=== PATIENT | male | born 1960 | race Caucasian/White ===

== ENCOUNTER 2018-10-11 22:00 | Inpatient (IN) | payer OTHER ==
[2018-10-11] MEDS ORDERED: Aspirin 81 mg CHEW TAB* 81 MG TAB.CHEW ONE (22:14)
[2018-10-11] MEDS ORDERED: Heparin for STEMI(*) 5,000 UNITS/ML 1 ML VIAL IV ONE (22:15)
[2018-10-11] MEDS ORDERED: Ticagrelor* 90 MG TAB PO ONE ×2 (22:15→22:17)
[2018-10-11] MEDS ORDERED: Aspirin 81 mg CHEW TAB* 81 MG TAB.CHEW PO ONE (22:17)
--- NOTE | 2018-10-11 22:21 | ED ---
HPI Chest Pain - HPI Summary HPI Summary: This pt is a 57 Y/O M presenting to [facility] with a CC of mid-sternal chest pain that started at 1800 and is rated a 5/10 in severity. The pt states that he described the pain as heart burn. He stated that it started after eating dinner and he felt his fingers go numb. He stated that he had SOB, nausea, diaphoresis , and dizziness during the episode. He denied any fever, chills, and headaches. He stated no known aggravating or alleviating factors. He denies any personal PMHx but stated that cardiac history is present on his mother and fathers side. He stated that he recently quit smoking and occasionally uses drugs and drinks alcohol. - History of Current Complaint Chief Complaint: EDChestPainROMI Time Seen by Provider: 10/11/18 22:06 Hx Obtained From: Patient Onset/Duration: Started Hours Ago - 4, Still Present Time of Onset: 18:00 Timing: Constant Initial Severity: Moderate Current Severity: Moderate Pain Intensity: 5 Pain Scale Used: 0-10 Numeric Chest Pain Location: Mid Sternal Chest Pain Radiates: No Character: Burning Aggravating Factor(s): Nothing Alleviating Factor(s): Nothing Associated Signs and Symptoms: Positive: Chest Pain - mid-sternal, Numbness - fingers, Dizziness, Shortness of Breath, Diaphoresis, Nausea. Negative: Headaches, Fever, Chills - Allergy/Home Medications Allergies/Adverse Reactions: Allergies Allergy/AdvReac Type Severity Reaction Status Date / Time No Known Allergies Allergy Verified 10/11/18 22:13 Home Medications: Home Medications NK [No Home Medications Reported] 10/11/18 [History Confirmed 10/11/18] PMH/Surg Hx/FS Hx/Imm Hx Previously Healthy: Yes Endocrine/Hematology History: Denies: Hx Diabetes Cardiovascular History: Denies: Hx Hypertension Infectious Disease History: No Infectious Disease History: Denies: Traveled Outside the [place] in Last 30 Days - Family History Known Family History: Positive: Cardiac Disease - Social History Alcohol Use: Occasionally Hx Substance Use: Yes Hx Tobacco Use: No Smoking Status (MU): Former Smoker Length of Time of Smoking/Using Tobacco: quit on 2017 Review of Systems Positive: Skin Diaphoresis. Negative: Fever, Chills Positive: Chest Pain - mid-sternal Positive: Shortness Of Breath Positive: Nausea Neurological: Other - dizziness Positive: Numbness - fingers. Negative: Headache All Other Systems Reviewed And Are Negative: Yes Physical Exam - Summary Physical Exam Summary: Appearance: Well appearing, no pain distress Skin: warm, dry, reflects adequate perfusion Head/face: normal Eyes: EOMI, MURTAZA ENT: normal Neck: supple, non-tender Respiratory: CTA, breath sounds present Cardiovascular: RRR, pulses symmetrical Abdomen: non-tender, soft Musculoskeletal: normal, strength/ROM intact Neuro: normal, sensory motor intact, A&Ox3 Triage Information Reviewed: Yes Vital Signs On Initial Exam: Initial Vitals Temp Pulse Resp BP Pulse Ox 97.6 F 62 16 152/81 97 10/11/18 22:05 10/11/18 22:05 10/11/18 22:05 10/11/18 22:05 10/11/18 22:05 Vital Signs Reviewed: Yes Diagnostics - Vital Signs Vital Signs Temp Pulse Resp BP Pulse Ox 10/11/18 22:05 97.6 F 62 16 152/81 97 - Laboratory Result Diagrams: 10/11/18 22:13 10/11/18 22:13 Lab Statement: Any lab studies that have been ordered have been reviewed, and results considered in the medical decision making process. - Radiology CXR Radiology Interpretation Completed By: ED Physician Summary of Radiographic Findings: No acute process. Pending offical review. - EKG 2202 Cardiac Rate: NL - 60 BPM EKG Rhythm: Sinus Rhythm Summary of EKG Findings: Pt has a sinus rhythm at 60 BPM and an Inferior VA. This EKG shows a [place] [address]/11/18. Chest Pain Course/Dx - Course Course Of Treatment: This pt is a 57 Y/O M presenting to [facility] with a CC of mid- sternal chest pain that started at 1800 and is rated a 5/10 in severity. The pt states that he described the pain as heart burn. His PE found no acute findings. Pt has a sinus rhythm at 60 BPM and an Inferior VA. This EKG shows a STEMI. STEMI was called at 2211. Pt was given Brillinta 180 mg, Heparin for stroke at 5,000 units IV and ASA 324 mg at 2215. His CXR no acute processes. His lab results were reviewed. Dr. Ruiz, dehydrating press operator, saw the pt at 2245 and admitted the pt to [facility] for further treatments. Pt was admitted with a Dx of STEMI. - Chest Pain Differential Diagnosis/HQI/PQRI: Acute VA, ACS, Chest Wall, Lower Respiratory Infection, Pulmonary Embolism - Diagnoses Provider Diagnoses: STEMI (ST elevation myocardial infarction) During the Visit The Following Alert/Code Occurred: STEMI - Provider Notifications Discussed Care Of Patient With: Az Ruiz Time Discussed With Above Provider: 22:45 Instructed by Provider To: Admit As Inpatient - Critical Care Time Critical Care Time: 30-74 min Discharge - Sign-Out/Discharge Documenting (check all that apply): Patient Departure - admitted All imaging exams completed and their final reports reviewed: Yes Patient Received Moderate/Deep Sedation with Procedure: No - Discharge Plan Condition: Stable Disposition: ADMITTED TO [facility] - Billing Disposition and Condition Condition: STABLE Disposition: Admitted to [facility] - Attestation Statements Document Initiated by Lukaszibe: Yes Documenting Scribe: Jamaal Dooley Provider For Whom Scribe is Documenting (Include Credential): Varun De La Paz MD Scribe Attestation: Jamaal Pfeiffer scribed for Varun De La Paz MD on 10/12/18 at 0022. Scribe Documentation Reviewed: Yes Provider Attestation: The documentation as recorded by the Jamaal jimenes accurately reflects the service I personally performed and the decisions made by Varun farmer MD Status of Scribe Document: Viewed
[2018-10-11 22:24] LABS: ABS Basophils 0.1 10^3/ul (0-0.2); ABS Eosinophils 0.2 10^3/ul (0-0.6); ABS Lymphocytes 2.1 10^3/ul (1.0-4.8); ABS Monocytes 0.7 10^3/ul (0-0.8); ABS Neutrophils 3.6 10^3/ul (1.5-7.7); Eosinophil % 2.3 %; Hematocrit 44 % (42-52); Hemoglobin 15.5 g/dL (14.0-18.0); Lymphocyte % 31.1 %; Mean Corpuscular HGB Conc 36 g/dL (31-36); Mean Corpuscular Hemoglobin 31 pg (27-31); Mean Corpuscular Volume 88 fL (80-94); Mean Platelet Volume 9.6 fL (7.4-10.4); Platelet Count 206 10^3/uL (150-450); Red Blood Count 4.94 10^6 /uL (4.18-5.48); Red Cell Distribution Width 13 % (10-15); White Blood Count 6.7 10^3/uL (3.5-10.8)
[2018-10-11 22:35] LABS: Activated Partial Thrombo Time 34.6 seconds (26.0-38.0); INR 0.98 (0.82-1.09)
[2018-10-11 22:39] LABS: Albumin 4.3 g/dL (3.2-5.2); Albumin/Globulin Ratio 1.7 (1-3); BUN/Creatinine Ratio 34.9 (8-20); Calcium 9.2 mg/dL (8.6-10.3); EGFR African American 115.5 (>60); EGFR Non-African American 95.5 (>60); Globulin 2.6 g/dL (2-4); Potassium 3.7 mmol/L (3.5-5.0); Total Bilirubin 0.3 mg/dL (0.2-1.0); Total Protein 6.9 g/dL (6.4-8.9)
[2018-10-11 22:41] LABS: Troponin I 0.02 ng/mL (<0.04)
[2018-10-11] MEDS ORDERED: Midazolam* 1 MG/ML 5 ML VIAL (5 MG) ONE (22:41)
[2018-10-11] MEDS ORDERED: fentaNYL* 50 MCG/ML 2 ML VIAL (100 MCG VIAL) ONE (22:41)
[2018-10-11] MEDS ORDERED: VERAPAMIL 2.5 MG/ML 2 ML VIAL ** 5 mg/2 ml ONE (22:41)
[2018-10-11] MEDS ORDERED: Heparin(*) 1000 UNIT/ML 10 ML VIAL CATH LAB IV ONE (22:41)
[2018-10-11] MEDS ORDERED: Lidocaine 1% INJ* 10 MG/ML 30 ML SDV ONE (22:42)
[2018-10-11] MEDS ORDERED: nitroGLYCERIN DRIP* 25,000 MCG/250 ML BTL ONE (22:42)
[2018-10-11] MEDS ORDERED: Heparin 2 UNITS/ML IVPREMIX* 3,000 UNIT/1,500 ML BAG IV ONE (22:42)
[2018-10-11] MEDS ORDERED: Heparin VIAL(*) 5000 UNITS/ML VIAL (FIVE THOUSAND) IV SCH (23:00)
[2018-10-11] MEDS ORDERED: Bivalirudin(*) 250 MG VIAL ONE (23:08)
[2018-10-11] MEDS ORDERED: Iohexol 350 (CONTRAST) 200 ML MDV IV ONE (23:22)
[2018-10-11] MEDS ORDERED: Nitroglycerin TAB 0.4 MG* 0.4 MG TAB SL PRN (23:42)
[2018-10-11] MEDS ORDERED: Docusate CAP* 100 MG PO PRN (23:42)
[2018-10-11] MEDS ORDERED: Ondansetron INJ* 2 MG/ML VIAL IV PRN (23:42)
[2018-10-11] MEDS ORDERED: Acetaminophen TAB* 325 MG PO PRN (23:42)
[2018-10-11] MEDS ORDERED: Zolpidem TAB* 5 MG PO PRN (23:42)
[2018-10-11] MEDS ORDERED: NS 0.9% 1000 ML** 1,000 ML IV SCH (23:45)
[2018-10-11] MEDS ORDERED: Atorvastatin* 80 MG TAB PO ONE (23:49)
[2018-10-12] MEDS ORDERED: Atorvastatin* 80 MG TAB ONE (00:04)
[2018-10-12] MEDS ORDERED: Captopril TAB* 12.5 MG PO SCH (02:00)
[2018-10-12 05:05] LABS: ABS Eosinophils 0.1 10^3/ul (0-0.6); ABS Lymphocytes 1.7 10^3/ul (1.0-4.8); ABS Monocytes 0.7 10^3/ul (0-0.8); ABS Neutrophils 4.1 10^3/ul (1.5-7.7); Eosinophil % 1.8 %; Hematocrit 42 % (42-52); Hemoglobin 14.5 g/dL (14.0-18.0); Lymphocyte % 25.7 %; Mean Corpuscular HGB Conc 35 g/dL (31-36); Mean Corpuscular Hemoglobin 31 pg (27-31); Mean Corpuscular Volume 88 fL (80-94); Mean Platelet Volume 9.5 fL (7.4-10.4); Nucleated Red Blood Cells % 0.1; Platelet Count 200 10^3/uL (150-450); Red Blood Count 4.69 10^6 /uL (4.18-5.48); Red Cell Distribution Width 13 % (10-15); White Blood Count 6.7 10^3/uL (3.5-10.8)
[2018-10-12 05:25] LABS: ALT 39 U/L (7-52); Albumin 3.9 g/dL (3.2-5.2); Albumin/Globulin Ratio 1.5 (1-3); Alkaline Phosphatase 42 U/L (34-104); BUN/Creatinine Ratio 31.9 (8-20); Blood Urea Nitrogen 22 mg/dL (6-24); CO2 Carbon Dioxide 24 mmol/L (22-32); Calcium 9.1 mg/dL (8.6-10.3); Chloride 105 mmol/L (101-111); Cholesterol 227 mg/dL; Creatine Kinase 316 U/L (10-223); EGFR African American 142.5 (>60); EGFR Non-African American 117.8 (>60); Globulin 2.6 g/dL (2-4); Glucose 161 mg/dL (70-100); HDL Cholesterol 43.7 mg/dL; LDL Cholesterol 113 mg/dL; Sodium 135 mmol/L (135-145); Total Protein 6.5 g/dL (6.4-8.9); Triglycerides 353 mg/dL
[2018-10-12 05:41] LABS: Troponin I 2.53 ng/mL (<0.04)
[2018-10-12 06:03] LABS: AST 33 U/L (13-39); Anion Gap 6 mmol/L (2-11); Potassium 3.9 mmol/L (3.5-5.0)
[2018-10-12] MEDS: Lisinopril TAB* 5 MG PO SCH (09:24)
[2018-10-12] MEDS: Aspirin 81 mg CHEW TAB* 81 MG TAB.CHEW PO SCH (09:25)
[2018-10-12] MEDS: Ticagrelor* 90 MG TAB PO SCH ×2 (09:25→20:07)
--- NOTE | 2018-10-12 10:20 | HP ---
ADMISSION HISTORY AND PHYSICAL: DATE OF ADMISSION: 10/11/18 CHIEF COMPLAINT: The patient presents with chest discomfort and arm and neck discomfort with EKG demonstrating acute ST-segment elevation inferior wall myocardial infarction. HISTORY OF PRESENT ILLNESS: The patient is a 58-year-old gentleman with no prior known cardiac history. Specifically, he denies any history of myocardial infarction, congestive heart failure, or significant heart rhythm disturbance. The patient works at [employer] doing significant exertional activity. He was moving furniture tonight and around 06:30 to 7:00 when he had moved furniture, he developed the onset of a chest pressure feeling significant in his chest with radiation to his arm and also to his neck. Of note, he started having this symptom on and off throughout the evening. He had some shortness of breath and some sweating and some nauseousness. He eventually thought that he should seek medical attention and presented to [facility] Emergency Room where an EKG demonstrated ST-segment elevation in the inferior leads with reciprocal changes in the early precordial leads in [address] elevation in V4 through 6. The emergency room doctor sent me the EKG and I immediately instructed him to call a STEMI alert. In the emergency room, he was still having mild symptoms albeit they were better. He received heparin 4000 units, Brilinta 180 mg and full-dose aspirin. The risks and benefits of cardiac catheterization were explained and he wished to proceed. Cardiac risk factors included no known history of hypertension, diabetes, or high cholesterol. He does have a significant family history with father who had a massive heart attack in his 50s and . He has a significant smoking history of at least greater than 20 years of smoking and stopped some 2 years ago. PAST MEDICAL HISTORY: No significant medical problems. MEDICATIONS: He currently does not take medications. SOCIAL HISTORY: He currently does not smoke, but was a former smoker of greater than 20 pack years. He occasionally drinks alcohol and has partaken of other substance uses. REVIEW OF SYSTEMS: Pertinent toward proceeding to the cardiovascular laboratory - the patient denies any history of hematochezia, hematemesis, or hematuria. He denies any history of TIA or stroke, any history of kidney disease and he denies any dye allergy. PHYSICAL EXAMINATION GENERAL: When I see him reveals a pleasant gentleman in very mild distress at best, appearing stable. VITAL SIGNS: Blood pressure in the emergency room was anywhere from 138 to 152/ 81 to 92, pulse in the 60s to 70s, respirations 16, O2 saturation greater than 95%. NECK: Supple. No increased JVP. LUNGS: Fairly clear with minimal wheeze present. HEART: Revealed regular rate and rhythm. No significant systolic or diastolic murmur. ABDOMEN: Soft and nontender without organomegaly. EXTREMITIES: Without clubbing, cyanosis, elier pitting edema. Peripheral pulses intact. Femoral pulses present without bruits. MUSCULOSKELETAL: The patient moves all extremities appropriately. NEUROLOGIC: The patient is alert, oriented with normal mentation. PSYCHOLOGICAL: The patient with normal affect, appropriate for his situation. DIAGNOSTIC STUDIES/LAB DATA: Laboratory results - pending at the time of emergency room assessment. EKG in the emergency room dated 10/11/18, time 2203, showed sinus bradycardia, heart rate 60, AR interval 0.14, QRS 0.10, QT 0.38, axis is +89 degrees. There is J-point elevation with ST-segment elevation in II, III and aVF and V4 through [address]-segment depression in aVL, V1 and V2. OVERALL ASSESSMENT: Sukh presents now with clear-cut stuttering symptoms over the past 3-1/2 hours suggestive of an acute ST-segment elevation inferior wall myocardial infarction. He appears to have improvement of his symptoms and this may represent reperfusion. He has not documented any reperfusion arrhythmias at this time. He has received aspirin, Brilinta, and heparin therapy. We will make further adjustments pending results of the cardiac catheterization. The risks and benefits were explained to him and with his present and he understands and wishes to proceed. Further management will be made pending results. High-dose statin therapy obviously will be instituted in addition to risk factor modification of his lifestyle. ADDENDUM: Laboratory results that came back during cardiac catheterization demonstrated hemoglobin/hematocrit of 15.5 and 44 with a platelet count of 206, 000, sodium 137, potassium 3.7, chloride 104, bicarb 21, BUN and creatinine of 29 and 0.8. Initial troponin 0.02, SGOT 22, SGPT 40, lactic acid 1.5. [id number]/[facility] #: [id number] [facility]
[2018-10-12] MEDS: Enoxaparin(*) 40 MG/0.4 ML SYR SUBCUT SCH (11:00)
--- NOTE | 2018-10-12 11:26 | CATH ---
CARDIAC CATHETERIZATION INTERVENTIONAL REPORT: DATE OF PROCEDURE: 10/11/18 INDICATION FOR PROCEDURE: The patient with acute ST segment elevation inferior wall myocardial infarction. CONSENT: The patient was interviewed and examined in the emergency room where the risks and benefits were explained. He understood them and wished to proceed. APPROACH UTILIZED: The right radial artery was assessed by ultrasound and found to be acceptable for an approach and as such this was the technique utilized. PRE-CARDIAC CATHETERIZATION LABORATORY RESULTS: Pending at the time of starting the case. During the case, the laboratory results came back with hemoglobin and hematocrit of 15.5 and 44 with a platelet count of 206,000. BUN and creatinine of 29 and 0.83. Sodium 137, potassium 3.7, chloride 104, bicarb 21, troponin 0.02. EQUIPMENT UTILIZED: 1. Right radial artery sheath - a 6 [place]ian Glidesheath Slender. 2. Diagnostic guidewire was a 260 length Andres guidewire. 3. Diagnostic coronary catheter was a TIG4 5 [place]ian catheter. 4. The interventional guide catheter was a 6 [place] Heartrail III IR 1.0 guide catheter. 5. The interventional wire utilized was 190 cm length All Star wire. 6. The stent utilized was a 3.0 x 23 mm long Xience Rose stent. 7. The post stent deployment balloon catheter was a 3.5 x 12 mm long NC Emerge balloon. 8. The left heart catheterization catheter was 5 [place]ian TIG short radial catheter. 9. The closure device utilized was a Vasc Band regular size by [employer]. MEDICATIONS GIVEN: The patient received heparin 4000 units in the emergency room in addition to aspirin 324 and Brilinta 180 mg orally. In the skill labor, the patient received a radial artery cocktail including 300 mcg of nitroglycerin and 3 mg of verapamil. He received Versed for sedation. ACT was checked and found to be subtherapeutic. He received an Angiomax bolus and Angiomax drip was started. DESCRIPTION OF PROCEDURE: The patient was brought to the cardiovascular laboratory where a formal time-out was performed. He was prepped and draped in sterile fashion, and under ultrasound guidance, the right radial artery was cannulated and sheath was placed. Coronary arteriography was performed. The decision was made to intervene into the right coronary artery mid lesion. The patient's ACT was checked, found to be subtherapeutic. Angiomax bolus and Angiomax drip was started. Guiding views were obtained and the guidewire was advanced down the right coronary artery and placed in the distal portion. Primary stenting was performed utilizing the 3.0 x 23 mm long Xience Rose drug -eluting stent with post deployment balloon inflations made with a 3.5 x 12 mm long NC Emerge balloon dilated to as high as mid 20 atmospheres to obtain 3.6 to 3.7 mm. Following this, the artery was assessed for result. Left heart catheterization was then performed utilizing the big Performa catheter. Left ventriculography was performed utilizing a total 28 cc of Omnipaque dye at a rate of 14 cc/sec. Following this, the catheter and sheath were removed and hemostasis was obtained with the Vasc Band. The total contrast used was 100 cc of Omnipaque dye. The radiation exposure included 7.6 minutes of fluoro time. The air kerma radiation was 1076 milligray. The DAP radiation was 6966 microgray/m2. RESULTS: HEMODYNAMIC DATA: Left heart catheterization revealed central aortic pressure 123/75 with a mean of 97, left ventricular pressure 117 over left ventricular end diastolic pressure of 8. LEFT VENTRICULOGRAPHY: Performed in the DALE projection revealed well-preserved overall left ventricular systolic function. There was a focal area of hypokinesis seen in the mid inferior wall. The overall ejection fraction appeared to be approximately 55%. There was no significant mitral regurgitation identified. CORONARY ARTERIOGRAPHY: A. Left coronary artery: 1. Left main - there was calcification seen within the left main proximal LAD and proximal circumflex system. The left main was widely patent. There was minimal narrowing in its distal portion of 10%. 2. Left anterior descending artery - the left anterior descending artery had calcium seen in its proximal to mid portion. There was a mild 30% narrowing seen in its proximal portion. Of note, this artery supplied a mid diagonal branch followed by thin second, third diagonal branches. In the mid portion of the vessel, at the take off of the mid diagonal branch, the mid diagonal branch ostium had a narrowing of approximately 65%. The proximal portion of this small caliber diagonal branch had a 55% to 60% obstruction in it. The LAD in this area had a stenosis just after the diagonal branch of approximately 55% with calcium. There was an area of 35% narrowing past this point in the mid to distal LAD. It traverses the apical region and minimally onto the inferior wall. 3. Circumflex artery - a nondominant vessel supplying a high thin first obtuse marginal branch followed by a second thin obtuse marginal branch. This was followed by a moderate size third obtuse marginal branch. The proximal portion of the circumflex had narrowing of approximately 40%. B. Right coronary artery - a dominant vessel supplying multiple acute marginal branches with a low-lying acute marginal branch paralleling a small posterior descending artery. There were 3 posterior left ventricular branches, the second of which was thin in nature. The PDA and the acute marginal branches were thin in caliber as well. The proximal portion of the right coronary artery had a mild 30% narrowing noted. The mid portion had mild disease of 30% leading to a critical 90% blockage seen just prior to turning on to the inferior surface of the heart. Past this point, the body of the right coronary artery had no significant obstructions with mild disease, but the caliber of multiple of the distal branches was small in nature as described above. INTERVENTION INTO MID RIGHT CORONARY ARTERY: Successful reduction of critical 90% to 95% blockage utilizing primary stenting with a 3.0 x 23 mm long Xience Rose drug-eluting stent post dilated to 3.6 to 3.7 mm with REGINA 3 flow, no dissection seen, and less than 5% residual stenosis. OVERALL ASSESSMENT: Mild left ventricular systolic dysfunction somewhat focal in nature to mid inferior wall as described above. Successful intervention into critically stenosed mid portion of right coronary artery as described above with moderate disease within the left coronary system in the mid LAD and mid diagonal branch. Aggressive dual antiplatelet therapy for a minimum of 1 year's time will be pursued. Aggressive risk factor modification with high dose statin therapy will be pursued as well. The patient will be screened for occult diabetes given elevated blood sugars and we will check fasting blood sugar as well. We will attempt beta-benjy and ROYAL inhibition therapy in addition to high dose statin therapy as mentioned. Smoking cessation has already been pursued by the patient and he has not been smoking for the past 2 years and we will urge him to maintain that. [id number]/[facility] #: [id number] [facility]
[2018-10-12 11:48] LABS: Creatine Kinase 446 U/L (10-223)
[2018-10-12 11:52] LABS: CKMB ng/mL 68.9 ng/mL (0.6-6.3)
[2018-10-12 12:06] LABS: Troponin I 6.21 ng/mL (<0.04)
[2018-10-12] MEDS ORDERED: Metoprolol Succinate XL TAB* 25 MG PO SCH (15:00)
--- NOTE | 2018-10-12 16:18 | CONSULT ---
Subjective Date of Service: 10/12/18 Interval History: This is a 58 year old male patient with no reported medical history that presented to the ED yesterday with complaints of "heartburn" like chest pain. Patient states the pain started when he was moving furniture, then progressed throughout dinner and increased to the point where he and his became more concerned. In the ER, he was noted to have elevations in the inferior leads on EKGs and was seen by Dr. Ruiz. He underwent radial cardiac catheterization and received one stent to the RCA. Hospitalists are being consulted today for medical co-management of elevated blood sugar. Family History: Unchanged from Admission - father with MN in his 50's, mother and sister with diabetes Social History: Unchanged from Admission - former smoker Past Medical History: Unchanged from Admission - none reported Review of Systems - Measurements Intake and Output: Intake and Output Last 24 Hours 10/10/18 10/11/18 10/12/18 10/13/18 06:59 06:59 06:59 06:59 Intake Total 687 700 Output Total 375 1090 Balance 312 -390 Weight 184 lb 15.485 oz Intake: IV Fluids 662 NS (0.9%) 662 Oral 25 700 Output: Urine 375 1090 Other: Estimated Void Small Medium Date of Last Bowel 10/12/18 Movement # Bowel Movements 1 1 Estimated Stool Amount Medium Small # Voids 1 - Review of Systems Constitutional Symptoms: Negative: Weight Gain, Weight Loss, Weakness, Fatigue, Fever, Night Sweats, Unexplained Falls, Other Dermatology: Negative: Normal, Rash, Skin Lesions, Cancer, Skin Lumps, Other HEENT: Negative: Normal, Change in Hearing, Vertigo, Dental Problems, Tinnitus, Sinus Problem, Other Eyes: Positive: Normal Thyroid: Positive: Normal Pulmonary: Positive: Cough Cardiology: Positive: Normal Gastroenterology: Positive: Normal Endocrinology: Positive: Hyperglycemia Neurology: Positive: Normal Psychiatry: Positive: Normal Objective Active Medications: Acetaminophen (Tylenol Tab*) 650 mg PO Q4H PRN PRN Reason: PAIN - MILD Aspirin (Aspirin 81 Mg Chew Tab*) 81 mg PO DAILY TERRELL Last Admin: 10/12/18 09:25 Dose: 81 mg Atorvastatin Calcium (Lipitor*) 80 mg PO 1700 TERRELL Docusate Sodium (Colace Cap*) 100 mg PO DAILY PRN PRN Reason: CONSTIPATION Enoxaparin Sodium (Lovenox(*)) 40 mg SUBCUT Q24H [facility] Last Admin: 10/12/18 11:00 Dose: 40 mg Lisinopril (Prinivil Tab*) 2.5 mg PO DAILY [facility] Last Admin: 10/12/18 09:24 Dose: 2.5 mg Metoprolol Succinate (Toprol Xl Tab*) 12.5 mg PO DAILY [facility] Last Admin: 10/12/18 15:03 Dose: 12.5 mg Nitroglycerin (Nitroglycerin Tab 0.4 Mg*) 0.4 mg SL Q5M PRN PRN Reason: ANGINA Last Admin: 10/12/18 03:05 Dose: 0.4 mg Ondansetron HCl (Zofran Inj*) 4 mg IV Q4H PRN PRN Reason: NAUSEA Ticagrelor (Brilinta*) 90 mg PO BID [facility] Last Admin: 10/12/18 09:25 Dose: 90 mg Zolpidem Tartrate (Ambien Tab*) 5 mg PO BEDTIME PRN PRN Reason: INSOMNIA Vital Signs - 8 hr 10/12/18 10/12/18 10/12/18 09:00 09:01 09:23 Temperature Pulse Rate 59 53 Respiratory 17 18 16 Rate Blood Pressure 133/83 (mmHg) O2 Sat by Pulse 98 98 Oximetry 10/12/18 10/12/18 10/12/18 10:00 11:00 11:01 Temperature Pulse Rate 54 55 55 Respiratory 21 18 17 Rate Blood Pressure 148/80 127/78 (mmHg) O2 Sat by Pulse 96 97 97 Oximetry 10/12/18 10/12/18 10/12/18 11:05 12:00 12:08 Temperature 96.6 F Pulse Rate 56 56 Respiratory 18 19 Rate Blood Pressure 130/85 (mmHg) O2 Sat by Pulse 98 99 Oximetry 10/12/18 10/12/18 10/12/18 13:00 13:09 14:00 Temperature Pulse Rate 52 53 Respiratory 14 16 17 Rate Blood Pressure 140/77 (mmHg) O2 Sat by Pulse 97 96 Oximetry 10/12/18 10/12/18 10/12/18 14:01 14:47 15:00 Temperature Pulse Rate 65 57 Respiratory 17 14 15 Rate Blood Pressure 137/81 114/75 (mmHg) O2 Sat by Pulse 99 99 Oximetry 10/12/18 15:01 Temperature Pulse Rate 61 Respiratory 15 Rate Blood Pressure 129/84 (mmHg) O2 Sat by Pulse 98 Oximetry Oxygen Devices in Use Now: None Appearance: alert, NAD Eyes: No Scleral Icterus, PERRLA Ears/Nose/Mouth/Throat: Mucous Membranes Moist Neck: NL Appearance and Movements; NL JVP, Trachea Midline Respiratory: Symmetrical Chest Expansion and Respiratory Effort, - - mild expiratory wheeze, unproductive cough Cardiovascular: RRR, No Edema Abdominal: NL Sounds; No Tenderness; No Distention Skin: No Rash or Ulcers Neurological: Alert and Oriented x 3, NL Sensation, NL Muscle Strength and Tone Nutrition: Taking PO's Result Diagrams: 10/12/18 04:50 10/12/18 04:50 Microbiology and Other Data: Microbiology 10/11/18 23:55 Nasal Screen MRSA (PCR) - Final Nasal Mrsa Not Detected Diagnostic Imaging: Patient Name: RODRIGO HEREDIA Medical Record#: [id number] Ordering Physician: Varun De La Paz MD Acct.#: [id number] : 1960 Age: 57 Sex: M Location: [facility] Exam Date: 10/11/182216 ADM Status: ADM IN Order Information: CHEST AP OR PORT Accession Number: [id number] CPT: 64835 HISTORY: cp chest pain COMPARISONS: None relevant available at the time of dictation. VIEWS: 1: frontal AP view of the chest at 10:21 PM FINDINGS: LINES AND TUBES: None. CARDIOMEDIASTINAL SILHOUETTE: The cardiomediastinal silhouette is normal for portable technique. PLEURA: The costophrenic angles are sharp. No pleural abnormalities are noted. LUNG PARENCHYMA: The lungs are clear. ABDOMEN: The upper abdomen is clear. There is no subphrenic gas. BONES AND SOFT TISSUES: No bone or soft tissue abnormalities are noted. IMPRESSION: NO ACTIVE CARDIOPULMONARY DISEASE. Assessment/Plan - Billing Assessment and Recommendations: 1. Hyperglycemia - Fasting glucose 166 with HgbA1c of 5.9, at this time, patient's elevated BG is likely 2/2 to stress of cardiac event. Recommend following fasting venous glucose on morning labs, will address if elevated - Recommend continued outpatient follow up with patient's PCP after discharge ( states he will be seeing his 's doctor) and rechecking A1c in several weeks - Recommend continue lifestyle modifications post-discharge given family history of diabetes during cardiac rehabilitation period 2. STEMI - POC as per cardiac team VTE PPX: - SCDs and ambulate Diet: - Heart Healthy Code Status: - Full code Admission Status and Rationale: - Inpatient, dispo as per Cardiology Thank you for the courtesy of this consultation. Will continue to follow the patient along with you.
[2018-10-12] MEDS: Atorvastatin* 80 MG TAB PO SCH (16:30)
[2018-10-12 16:55] LABS: Creatine Kinase 387 U/L (10-223)
[2018-10-12 17:01] LABS: CKMB ng/mL 57.5 ng/mL (0.6-6.3)
[2018-10-12 17:03] LABS: Troponin I 6.44 ng/mL (<0.04)
[2018-10-13 08:38] LABS: BUN/Creatinine Ratio 22.5 (8-20); EGFR African American 120.1 (>60); EGFR Non-African American 99.3 (>60); Potassium 4.3 mmol/L (3.5-5.0)
[2018-10-13] MEDS: Metoprolol Succinate XL TAB* 25 MG PO SCH (08:50)
[2018-10-13] MEDS: Aspirin 81 mg CHEW TAB* 81 MG TAB.CHEW PO SCH (08:50)
[2018-10-13] MEDS: Ticagrelor* 90 MG TAB PO SCH ×2 (08:51→20:48)
[2018-10-13] MEDS: Lisinopril TAB* 5 MG PO SCH (08:51)
--- NOTE | 2018-10-13 09:18 | ECHO ---
*[facility]* [place] [address] Fax #: [phone] Transthoracic Echocardiogram Patient: Sukh Chavarria : 1960 Study Date: 10/13/2018 Age: 58 Gender: M HR: 50 bpm Height: 68 in /172.7 cm BSA: 1.88 m^2 Weight: 164.7 lb /74.8 kg BMI: 25.1 kg/m^2 *Cheese Specialist: * Margo Young [facility] *Referring Physician: * Az Ruiz MD *Reading Physician: * Inés Calvert MD Indications: Myocardial Infarction (new). History: Risk factors: Former tobacco use. Family history is significant for coronary artery disease. Labs, prior tests, procedures, and surgery: Catheterization. Performed during the current admission. There was a stenosis which was treated with a stent. Conclusions Summary: - Left ventricle: Systolic function is at the lower limits of normal. The estimated ejection fraction is 50-55%. Wall motion is normal; there are no regional wall motion abnormalities. Parasternal views good to excellent, apical 2 and 3 views fair. M mode performed in parasternal views shows symetrical contractility. - Right ventricle: The cavity size is mildly dilated. Systolic function is reduced. Hypokinesis of the RV apex. - Mitral valve: There is trace regurgitation. - Aortic valve: The valve is trileaflet. The leaflets are mildly thickened. - Inferior vena cava: The vessel is dilated. - No prior echocardiogram to compare. Study data: Transthoracic echocardiogram. Procedure: Transthoracic echocardiography was performed. Image quality was fair. Complete 2D, spectral Doppler, and color flow Doppler. Location: Bedside. Patient status: Inpatient. Patient room number: 440. Rhythm: Bradycardia. Findings Left ventricle: The cavity size is normal. Wall thickness is normal. Systolic function is at the lower limits of normal. The estimated ejection fraction is 50-55%. Wall motion is normal; there are no regional wall motion abnormalities. Parasternal views good to excellent, apical 2 and 3 views fair. There is no consistent Doppler evidence of clinically significant diastolic dysfunction. Right ventricle: The cavity size is mildly dilated. Systolic function is reduced. Hypokinesis of the RV apex. Ventricular septum: There is septal flattening of the interventricular septum consistent with RV volume or pressure overload. Left atrium: The atrium is mildly dilated. Right atrium: The atrium is mildly dilated. Mitral valve: The leaflets are mildly thickened. There is no evidence of stenosis. There is trace regurgitation. Aortic valve: The valve is trileaflet. The leaflets are mildly thickened. There is no evidence of stenosis. There is no significant regurgitation. Tricuspid valve: The leaflets are normal thickness. There is no evidence of stenosis. There is physiologic regurgitation. Pulmonic valve: The leaflets are normal thickness. There is no evidence of stenosis. There is trace regurgitation. Aorta: Ascending aorta: The ascending aorta is appears normal. The aortic root appears normal. The aortic arch appears normal. Pericardium: A prominent pericardial fat pad is present. There is no significant pericardial effusion. Pulmonary arteries: The main pulmonary artery is normal-sized. Systolic pressure can not be accurately estimated. Systemic veins: Inferior vena cava: The vessel is dilated. There is (>= 50%) respiratory change in the IVC dimension. Measurements Left ventricle Value Ref Right atrium continued Value Ref SILKE, LAX 4.4 cm 4.2 - 5.8 SI dim, ES, A4C 4.8 cm 3.4 - 5.3 ESD, LAX 2.5 cm 2.5 - 4.0 Estimated RAP 8 mm Hg --------- FS, LAX 43 % 25 - 43 PW, ED, LAX 1.0 cm 0.6 - 1.0 Aortic valve Value Ref FS 42 % 25 - 43 Stephen diam, ED 2.1 cm --------- PW, ED 1.0 cm 0.6 - 1.0 Peak v, S 1.22 m/sec --------- E', lat stephen, TDI 12.4 cm/sec >=10.0 VTI, S 25.9 cm -- ------- E/e', lat stephen, 4 Mean grad, S 3.0 mm Hg ----- ---- TDI Peak grad, S 6.0 mm Hg --------- E', med stephen, TDI 9.8 cm/sec >=7.0 LVOT/AV, VTI ratio 0.77 -- ------- E/e', med stephen, 5 TDI Mitral valve Value Ref E', avg, TDI 11.1 cm/sec Peak E 0.51 m/sec ----- ---- E/e', avg, TDI 5 <=14 Peak A 0.26 m/sec -- ------- Decel time 141 ms --------- LVOT Value Ref Peak E/A ratio 2 --------- Peak sandrine, S 1.14 m/sec VTI, S 20.0 cm Pulmonic valve Value Ref Peak grad, S 5 mm Hg Peak v, S 0.8 m/sec --------- Mean grad, S 2 mm Hg Peak grad, S 3.0 mm Hg --------- Ventricular septum Value Ref Aortic root Value Ref IVS, ED 0.9 cm 0.6 - 1.0 Root diam 3.1 cm <4.1 Right ventricle Value Ref Ascending aorta Value Ref SILKE, LAX 3.4 cm AAo AP diam, S 3.3 cm --------- SILKE minor ax, (H) 4.7 cm 1.9 - 3.5 A4C mid Aortic arch Value Ref Arch diam 2.6 cm --------- Left atrium Value Ref AP dim, ES 3.50 cm 3.00 - Decending aorta Value Ref 4.00 Evi peak sandrine 0.67 m/sec --------- ML dim, A4C 4.4 cm SI dim, A4C 5.0 cm Inferior vena cava Value Ref Vol/bsa, ES, 1-p 34 ml/m^2 12 - 37 Diam 2.2 cm --------- A4C Vol/bsa, ES, A/L (H) 36 ml/m^2 16 - 34 Right atrium Value Ref SI dim, ES 4.9 cm 3.4 - 5.3 ML dim, ES, A4C (H) 4.5 cm 2.6 - 4.4 Legend: (L) and (H) geovany values outside specified reference range. Prepared and electronically signed by Inés Calvert MD 10/13/2018 09:17
[2018-10-13] MEDS: Enoxaparin(*) 40 MG/0.4 ML SYR SUBCUT SCH (10:01)
--- NOTE | 2018-10-13 12:36 | DS ---
DISCHARGE SUMMARY: DATE OF ADMISSION: 10/11/18 DATE OF DISCHARGE: 10/14/18 FINAL DIAGNOSIS: ST segment elevation inferoposterior wall myocardial infarction. SECONDARY DIAGNOSES: 1. Stenotic coronary artery disease. 2. Glucose intolerance. 3. Prior history of smoking (currently not smoking). 4. Hyperlipidemia. MEDICATIONS AT THE TIME OF DISCHARGE: 1. Aspirin 81 mg a day. 2. Atorvastatin 80 mg a day. 3. Lisinopril 2.5 mg a day. 4. Metoprolol succinate 12.5 mg daily. 5. Nitroglycerin p.r.n. 6. Ticagrelor 90 mg twice a day. HOSPITAL COURSE: The patient is a pleasant 58-year-old gentleman who presented in the throes of an acute inferoposterior wall myocardial infarction on . Please refer to the H and P for complete details. Of note, he had stuttering symptoms over the course of some 3-1/2 hours and finally presented to the emergency room. He was taken emergently to the cardiovascular laboratory. Cardiac catheterization had demonstrated a critically stenosed 90% to 95% mid LAD prior to turning onto the inferior surface of the heart. The left anterior descending artery had mild to moderate disease with moderate disease within a small caliber mid diagonal branch as well as moderate disease in the mid to left anterior descending artery with calcium. The circumflex had mild disease present. He underwent successful intervention with placement of a 3.0 x 23 mm long Xience Rose drug-eluting stent post-dilated to 3.6 to 3.7 mm with less than 5% residual stenosis. Left ventriculography showed a focal wall motion abnormality to the mid inferior wall of hypokinesis with overall low normal EF. During the course of the hospitalization, he was placed on medical management. Of note, because of bradycardia and hypotension, low dose of Joni and beta-benjy were instituted and he tolerated those. He underwent echocardiography on 10/13/18 that showed overall low normal LV systolic function with an EF of 50% to 55% with now obvious regional wall motion abnormalities of the left ventricle. The right ventricle, however, was mildly dilated and there was reduced systolic functions, specifically toward the apical region. In reviewing this with the heart catheterization, this may have been due to a low-lying acute marginal branch, which paralleled the PDA supplying the apical right ventricle, which takeoff came after the 90% to 95% lesion with the presumption being that the right coronary artery was totally occluded for somewhat prolonged period of time on and off for provoking this hypokinesis. He was eventually up and about, doing reasonably well, denying any specific chest or jaw or residual arm discomfort. As of 10/13/18, he was doing fairly well. His EKG had normalized with no acute ST-T wave changes. During the course of the hospitalization, his cardiac enzymes peaked with a CPK total of 446 and the CPK-MB peaked at 68.9. Other laboratory results had revealed a triglyceride of 353, a total cholesterol of 227 and LDL of 113. [id number]/[facility] #: [id number] [facility]
[2018-10-13] MEDS: Atorvastatin* 80 MG TAB PO SCH (17:54)
[2018-10-14 07:45] VITALS: BP 108/60
[2018-10-14] MEDS: Metoprolol Succinate XL TAB* 25 MG PO SCH (08:34)
[2018-10-14] MEDS: Ticagrelor* 90 MG TAB PO SCH (08:34)
[2018-10-14] MEDS: Aspirin 81 mg CHEW TAB* 81 MG TAB.CHEW PO SCH (08:34)
[2018-10-14] MEDS: Lisinopril TAB* 5 MG PO SCH (08:35)
[2018-10-14] MEDS: Enoxaparin(*) 40 MG/0.4 ML SYR SUBCUT SCH (09:19)
--- NOTE | 2018-10-14 10:26 | PN ---
Hospitalist Progress Note Date of Service: 10/14/18 Patient seen, chart evaluated. BG 122 fasting yesterday. No intervention necessary. Discussed follow up for blood sugar with patient. He will make appointment with Dr. Mcneil outpatient in the next 1-2 weeks. Will sign off.
--- NOTE | 2018-10-14 13:28 | DS ---
CC: Dr. Ruiz; Akanksha Mcneil MD DISCHARGE SUMMARY: ADDENDUM: DATE OF ADMISSION: 10/12/18 DATE OF DISCHARGE: 10/14/18 SUBJECTIVE: He is asymptomatic without chest pain, he is ambulatory. He denies any right hand sympt oms or issues, he feels well. Exam today is notable for asymptomatic sinus bradycardia which has been present throughout the hospit alization on low-dose beta-blockade. Vital Signs: Blood pressure is stable. His lungs are clear. Cardiac exam is unremarkable. He is reverse Oswald right wrist is normal as is wrist evaluation. He has no edema. EKG is unchanged with sinus bradycardia. He received full discharge instructions. We will have a scheduled followup with Dr. Ruiz next week , follow with Dr. Mcneil for his hyperglycemia. The plan is to eventually arrange followup at [facility] with Dr. Mcgraw. He is stable for discharge. [id number]/[facility] #: [id number]
--- NOTE | 2018-10-16 15:29 | DS ---
DISCHARGE SUMMARY: DATE OF DISCHARGE: 10/14/18 ADDENDUM: He was discharged to home. [id number]/[facility] #: [id number] [facility]TDD
== END 2018-10-14 12:16 | disposition home or self-care (01) | DRG 247 ==
LOC: ED 22:00 → CHICATH 22:44 → ICU 23:42 → MEDTELE 10-12 17:10
PROVIDERS: ADMIT Internal Medicine Cardiovascular Disease; ATTEND Internal Medicine Cardiovascular Disease
PROC: B2111ZZ Fluoroscopy of Multiple Coronary Arteries using Low Osmolar Contrast (ICD-10-PCS; 2018-10-11)
PROC: B2151ZZ Fluoroscopy of Left Heart using Low Osmolar Contrast (ICD-10-PCS; 2018-10-11)
PROC: 4A023N7 Measurement of Cardiac Sampling and Pressure, Left Heart, Percutaneous Approach (ICD-10-PCS; 2018-10-11)
PROC: 027034Z Dilation of Coronary Artery, One Artery with Drug-eluting Intraluminal Device, Percutaneous Approach (ICD-10-PCS; principal; 2018-10-11 15:00)
DX: I21.19 ST elevation (STEMI) myocardial infarction involving other coronary artery of inferior wall (principal); E74.39 Other disorders of intestinal carbohydrate absorption; R73.9 Hyperglycemia, unspecified; E78.5 Hyperlipidemia, unspecified; R00.1 Bradycardia, unspecified; I95.9 Hypotension, unspecified; Z82.49 Family history of ischemic heart disease and other diseases of the circulatory system; Z83.3 Family history of diabetes mellitus; Z87.891 Personal history of nicotine dependence; Z72.89 Other problems related to lifestyle; Z79.82 Long term (current) use of aspirin; Z79.02 Long term (current) use of antithrombotics/antiplatelets
CPT/HCPCS: 36415; 71045; 76937; 80048; 80053; 80061; 82550; 82553; 83036; 83605; 83880; 84484; 85025; 85347; 85610; 85730; 87641; 93005; 93306; 99285; A9270-GY; C1725; C1769; C1876; C9606-RC; J0583; J1644; J1650; J2250; J3010